=== PATIENT | female | born 1990 | race Caucasian/White ===

== ENCOUNTER 2023-10-14 20:36 | Inpatient (IN) | payer BC, SELFPAY ==
[2023-10-14] VITALS (9 sets, daily range): BP systolic 124–146; BP diastolic 71–94; PULSE 77–91; RESP 14; TEMP 36.7–37.2; O2SAT 81–99; BMI 31.8
[2023-10-14 21:08] LABS: Absolute Lymphocyte Count 1.98 X10^3/uL (0.83-4.51); Absolute Neutrophil Count 7.7 X10^3/uL (2.0-7.7); Basophil# 0.06 X10^3/uL; Basophil% 0.6 % (0-1); Eosinophils% 1.9 % (0-5); Hematocrit 34.5 % (37-47); Hemoglobin 11.3 g/dL (12.0-15.0); Lymphocyte # 1.98 X10^3/ul (0.83-4.51); Lymphocyte % 18.4 % (19-41); Mean Corp Hgb Conc 32.8 g/dL (32-36); Mean Corpuscular Hgb 28.8 pg (27.0-32.0); Mean Corpuscular Volume 87.8 fL (81-99); Mean Platelet Vol. 12.5 fl (6.2-12.0); Monocyte# 0.73 X10^3/uL; Monocyte% 6.8 % (0-10); NRBC Flagged by Analyzer 0 % (0-5); Neutrophil # 7.74 X10^3/uL (2.7-7.7); Neutrophil % 71.7 % (47-70); Platelet Count 268 K/mm3 (150-450); RBC Distribution Width CV 14.3 % (11.6-14.6); RBC Distribution Width SD 44.8 fl (35.1-43.9); Red Blood Count 3.93 M/mm3 (4.2-5.4); White Blood Count 10.8 K/mm3 (4.4-11.0)
[2023-10-14] MEDS: miSOPROStol 25 MCG TABLET PO (21:31)
[2023-10-14] MEDS: 0.9% Normal Saline Single 100 ML IV.SOLN. INTRA-UTER (21:31)
--- NOTE | 2023-10-14 21:33 | OB.TRI.NOTE ---
HPI - General General Date of Admission: 10/14/23 HPI Narrative PINA WEST, is a 33 F at 39.2 who presents for induction of labor for polyhydramnios and preeclampsia. She was scheduled for induction tomorrow night but most recent labs returned with an elevated P/C ratio and elevated blood pressures. Maternal Data Information LILLIAN Calculator Estimated Delivery Date Method Current WG Current Estimate 10/19/23 Manual 39w 2d Final LILLIAN: 10/19/23 PFSH PFSH Medical History (Updated 10/14/23 @ 21:44 by Saniya Dao CNM) Fibromyalgia Polyhydramnios Pre-eclampsia Seasonal allergies Home Medications diphenhydramine HCl 25 mg capsule (Benadryl) 25 mg PO Q8H PRN seasonal allergies 10/14/23 [History Last Taken Unknown] famotidine 20 mg tablet (Acid Bakery Technician (famotidine)) 20 mg PO DAILY PRN heartburn 10/14/23 [History Last Taken Unknown] loratadine 10 mg tablet (Claritin) 10 mg PO DAILY seasonal allergies 10/14/23 [History Last Taken Unknown] vit no.95-ferrous fumarate 28 mg-folic acid 800 mcg tablet () 1 tab PO DAILY 10/14/23 [History Last Taken Unknown] Allergy/AdvReac Type Severity Reaction Status Date / Time Sulfa (Sulfonamide AdvReac Mild Vomiting Verified 10/14/23 20:49 Antibiotics) Family History Mother COPD (chronic obstructive pulmonary disease) Father Hypertension Social History Smoking Status: Never smoker History Elective abortions Hx Para 0 Spontaneous abortions Hx # Term Pregnancies Ectopic pregnancies Hx # Pregnancies Multiple births # of living children ROS Eyes Eyes: Denies blurry vision, change in vision or spots in vision ENT HEENT: Denies dizziness or headache(s) Cardiovascular Cardiovascular: Denies abdominal pain, chest pain or dyspnea Respiratory/Chest Respiratory/Chest: Denies cough, dyspnea, shortness of breath at rest or shortness of breath with exertion Gastrointestinal Gastrointestinal: Denies abdominal pain, diarrhea or vomiting Genitourinary Genitourinary: Denies change in urinary stream, difficulty urinating or dysuria Musculoskeletal Musculoskeletal: Reports none Integumentary Integumentary: Denies rash Neurologic Neurologic: Denies dizziness, headache(s), memory loss or weakness Psychiatric Psychiatric: Reports none Physical Exam Const alert, oriented x3 and no apparent distress General Appearance: cooperative Orientation / Consciousness: awake Exam Limitations: no limitations HEENT normocephalic Head and Scalp: normal to inspection Eyes General Eye: normal appearance of both eyes Neck full ROM and no lymphadenopathy Lymph Lymphatic: no lymphadenopathy noted Chest inspection of chest normal Resp normal respiratory effort, normal air movement and clear to auscultation bilaterally Effort and Inspection: able to speak in complete sentences and symmetric chest movement Cardio regular rate and regular rhythm GI normal to inspection, nondistended, normoactive bowel sounds Manual OB Exam: presentation cephalic Back/Spine normal ROM Extremity full ROM and no calf tenderness General Extremity: edema bilateral (+2) lower extremity Skin no rashes or lesions noted General Skin Exam: no breakdown Neuro oriented x3 and CN's II-XII intact bilaterally Psych mental status grossly normal and thought process normal Assessment & Plan (1) 39 weeks gestation of : (2) Polyhydramnios affecting : (3) Encounter for induction of labor: (4) Pre-eclampsia: PLAN: Plan Admit to labor and delivery Activate hypertension protocol GBS negative CE 1.5/60/-2 Cortez bulb placed without difficulty and filled with 30 cc/ NS Cytotec 25 mcg PO every 4 hours x 6 doses total Pain medications as indicated Initial blood pressure 146/94 Patient denies current headache, dizziness, or RUQ pain Dr. Meade notified of admission and is collaborating physician
[2023-10-14 21:41] LABS: Syphilis Antibodies Non-reactive
--- NOTE | 2023-10-14 21:45 | HP.PCM.OB_ITS ---
HPI - General General Date of Admission: 10/14/23 HPI Narrative PINA WEST, is a 33 F at 39.2 weeks gestation who presents for induction of labor. Patient was scheduled for induction tomorrow for polyhydramnios (KIYA 30) but recent labs drawn in office resulted elevated P/C ratio. Maternal Data Information LILLIAN Calculator Estimated Delivery Date Method Current WG Current Estimate 10/19/23 Manual 39w 2d PFSH PFSH Medical History (Updated 10/14/23 @ 21:44 by Saniya Dao CNM) Fibromyalgia Polyhydramnios Pre-eclampsia Seasonal allergies Home Medications diphenhydramine HCl 25 mg capsule (Benadryl) 25 mg PO Q8H PRN seasonal allergies 10/14/23 [History Last Taken Unknown] famotidine 20 mg tablet (Acid Sales Associate Key Holder (famotidine)) 20 mg PO DAILY PRN heartburn 10/14/23 [History Last Taken Unknown] loratadine 10 mg tablet (Claritin) 10 mg PO DAILY seasonal allergies 10/14/23 [History Last Taken Unknown] vit no.95-ferrous fumarate 28 mg-folic acid 800 mcg tablet () 1 tab PO DAILY 10/14/23 [History Last Taken Unknown] Allergy/AdvReac Type Severity Reaction Status Date / Time Sulfa (Sulfonamide AdvReac Mild Vomiting Verified 10/14/23 20:49 Antibiotics) Family History Mother COPD (chronic obstructive pulmonary disease) Father Hypertension Social History Smoking Status: Never smoker History Elective abortions Hx Para 0 Spontaneous abortions Hx # Term Pregnancies Ectopic pregnancies Hx # Pregnancies Multiple births # of living children ROS Eyes Eyes: Denies blurry vision, change in vision or spots in vision ENT HEENT: Denies dizziness or headache(s) Cardiovascular Cardiovascular: Denies abdominal pain, chest pain or dyspnea Respiratory/Chest Respiratory/Chest: Denies cough, dyspnea, shortness of breath at rest or shortness of breath with exertion Gastrointestinal Gastrointestinal: Denies abdominal pain, diarrhea or vomiting Genitourinary Genitourinary: Denies change in urinary stream, difficulty urinating or dysuria Musculoskeletal Musculoskeletal: Reports none Integumentary Integumentary: Denies rash Neurologic Neurologic: Denies dizziness, headache(s), memory loss or weakness Psychiatric Psychiatric: Reports none Vital Signs Vital Signs Vital Signs: 10/14/23 20:56 10/14/23 20:56 10/14/23 20:57 Temperature Temperature Source Pulse Rate 83 91 Respiratory Rate Blood Pressure 146/94 H BP Systolic 146 BP Diastolic 94 Pulse Ox 10/14/23 20:57 10/14/23 20:58 10/14/23 20:58 Temperature Temperature Source Pulse Rate 84 Respiratory Rate Blood Pressure BP Systolic BP Diastolic Pulse Ox 99 81 10/14/23 20:59 10/14/23 20:59 10/14/23 20:59 Temperature Temperature Source Temporal Pulse Rate 91 Respiratory Rate 14 Blood Pressure BP Systolic BP Diastolic Pulse Ox 10/14/23 20:59 10/14/23 20:59 Temperature 98.9 F Temperature Source Pulse Rate Respiratory Rate Blood Pressure BP Systolic BP Diastolic Pulse Ox 99 Weight Weight: 174 lb 8 oz Body Mass Index (BMI) 31.8 Physical Exam Const alert, oriented x3 and no apparent distress General Appearance: cooperative Orientation / Consciousness: awake Exam Limitations: no limitations HEENT normocephalic Head and Scalp: normal to inspection Eyes General Eye: normal appearance of both eyes Neck full ROM and no lymphadenopathy Lymph Lymphatic: no lymphadenopathy noted Chest inspection of chest normal Resp normal respiratory effort, normal air movement and clear to auscultation bilaterally Effort and Inspection: able to speak in complete sentences and symmetric chest movement Cardio regular rate and regular rhythm GI normal to inspection, nondistended, normoactive bowel sounds Manual OB Exam: presentation cephalic Back/Spine normal ROM Extremity full ROM and no calf tenderness Skin no rashes or lesions noted General Skin Exam: no breakdown Neuro oriented x3 and CN's II-XII intact bilaterally Psych mental status grossly normal and thought process normal Labs Labs Labs: Blood Type Pending Antibody Screen Pending Hct 34.5 % (37-47) L Hgb 11.3 g/dL (12.0-15.0) L Syphilis Total Ab Non-reactive GBS negative Assessment & Plan (1) Pre-eclampsia: (2) Encounter for induction of labor: (3) Polyhydramnios affecting : (4) 39 weeks gestation of : PLAN: Plan Admit to labor and delivery GBS negative CE 1.5/60/-2 Cortez bulb placed without difficulty and filled with 30 cc N/S Cytotec 25 mcg. PO every 4 hours with a total of 6 doses Initial BP tonight 146/94 Activate hypertension protocol Pain medication if indicated Dr. Meaed notified of admission and is collaborating physician
[2023-10-14] MEDS: Acetaminophen 500 MG Tablet PO (23:45)
[2023-10-15] VITALS (81 sets, daily range): BP systolic 112–159; BP diastolic 58–91; PULSE 67–169; RESP 16–18; TEMP 36.1–37.8; O2SAT 91–100
[2023-10-15] MEDS: Lactated Ringers 1,000 ML 50 ML IV (01:44)
[2023-10-15] MEDS: Oxytocin 15 Units/NS 250ml 15 UNITS/250 ML IV.SOLN 2 UNITS IV (01:44)
[2023-10-15] MEDS: LACTATED RINGERS 500 ML 999 ML IV ×5 (04:40→17:27)
--- NOTE | 2023-10-15 06:44 | PN.OBGYN_ITS ---
Subjective Subjective Patient seen at bedside. Coping with contractions. Ambulating and changing positions without difficulty. Unsure if wants epidural for pain control. Objective Data Objective Data Vital Signs: Vital Signs Temp Pulse Resp BP Pulse Ox 98.0 F 72 16 139/86 H 99 10/15/23 06:03 10/15/23 06:04 10/15/23 06:03 10/15/23 06:04 10/15/23 06:03 Weight: 174 lb 8 oz Body Mass Index (BMI) 31.8 Intake & Output: Intake and Output for Last 24 Hours 10/13/23 10/14/23 10/15/23 23:59 23:59 23:59 Intake Total 653.40 / 653.40 Balance 653.40 / 653.40 Lab / Micro Data 10/14/23 20:45 Labs: Laboratory Results - last 24 hr 10/14/23 20:45: WBC 10.8, RBC 3.93 L, Hgb 11.3 L, Hct 34.5 L, MCV 87.8, MCH 28.8, MCHC 32.8, RDW Std Deviation 44.8 H, RDW Coeff of Chad 14.3, Plt Count 268, MPV 12.5 H, Immature Gran % (Auto) 0.600, Neut % (Auto) 71.7 H, Lymph % (Auto) 18.4 L, [place] % (Auto) 6.8, Eos % (Auto) 1.9, Baso % (Auto) 0.6, Absolute Neuts (auto) 7.7, Absolute Lymphs (auto) 1.98, Nucleated RBC % 0, Syphilis Total Ab Non-reactive, Blood Type A POSITIVE, Antibody Screen NEGATIVE Assessment & Plan (1) Pre-eclampsia: (2) Encounter for induction of labor: (3) Polyhydramnios affecting : (4) 39 weeks gestation of : PLAN: Plan Cat. 1 tracing Cortez bulb came out around 2330 No severe range blood pressures Denies headache, vision changes, or RUQ pain CE 4/70/-2 AROM for copious amount of clear fluid Continue Pitocin IV and increase per orders Epidural if indicated
[2023-10-15] MEDS: fentaNYL-bupivacaine (epidural) 100 ML BAG EPIDURAL ×3 (08:17→19:13)
[2023-10-15] MEDS: Lactated Ringers 1,000 ML 200 ML IV ×3 (10:04→20:53)
[2023-10-15] MEDS: Amnioinfusion- 0.9% NS 1,000 ML IV.SOLN. 200 ML INTRA-UTER (11:27)
--- NOTE | 2023-10-15 21:08 | PN.OBGYN_ITS ---
Subjective Subjective Resting on left side in bed. Feeling so pressure. Epidural for pain management. Objective Data Objective Data Vital Signs: Vital Signs Temp Pulse Resp BP Pulse Ox 99.5 F H 72 16 146/91 H 100 10/15/23 20:16 10/15/23 20:23 10/15/23 20:16 10/15/23 20:23 10/15/23 19:24 Weight: 174 lb 8 oz Body Mass Index (BMI) 31.8 Intake & Output: Intake and Output for Last 24 Hours 10/13/23 10/14/23 10/15/23 23:59 23:59 23:59 Intake Total 5016.95 / 5016.95 Output Total 1300 / 1300 Balance 3716.95 / 3716.95 Lab / Micro Data 10/14/23 20:45 Labs: Laboratory Results - last 24 hr 10/14/23 20:45: WBC 10.8, RBC 3.93 L, Hgb 11.3 L, Hct 34.5 L, MCV 87.8, MCH 28.8, MCHC 32.8, RDW Std Deviation 44.8 H, RDW Coeff of Chad 14.3, Plt Count 268, MPV 12.5 H, Immature Gran % (Auto) 0.600, Neut % (Auto) 71.7 H, Lymph % (Auto) 18.4 L, [place] % (Auto) 6.8, Eos % (Auto) 1.9, Baso % (Auto) 0.6, Absolute Neuts (auto) 7.7, Absolute Lymphs (auto) 1.98, Nucleated RBC % 0, Syphilis Total Ab Non-reactive, Blood Type A POSITIVE, Antibody Screen NEGATIVE Physical Exam Manual OB Exam: presentation cephalic, dilated 10cm, effaced 100% and station +1 NST FHR Rate Baby A Baseline: 140 Variability:: Moderate Accelerations:: 15 x 15 Decelerations:: Early and Variable FHR Category:: Category II Assessment & Plan (1) Pre-eclampsia: (2) Encounter for induction of labor: (3) Polyhydramnios affecting : (4) 39 weeks gestation of : PLAN: Plan 1) Complete dilation, start pushing efforts for second stage 2) Category 2 FHT 3) collaborative physician, notified of patient status and of above assessment and plan
[2023-10-15] MEDS: Ondansetron 4 MG/2 ML Vial IV (21:32)
[2023-10-16] VITALS (48 sets, daily range): BP systolic 117–142; BP diastolic 68–84; PULSE 74–104; RESP 16–20; TEMP 36.5–37.8; O2SAT 16–98
[2023-10-16] MEDS: Oxytocin 10 UNITS/ML Vial IM (00:42)
[2023-10-16] MEDS: Oxytocin 15 Units/NS 250ml 15 UNITS/250 ML IV.SOLN 83 UNITS IV (00:44)
--- NOTE | 2023-10-16 01:11 | OP.PCM_ITS ---
Assessment & Plan (1) Vaginal delivery: (2) First degree perineal laceration: (3) Lactating mother: Maternal Data Information LILLIAN Calculator Estimated Delivery Date Method Current WG Current Estimate 10/19/23 Manual 39w 4d Vaginal Delivery Maternal Presentation Maternal Presentation: Medically Indicated Induction Type of Induction: Pitocin, Cortez Bulb and Cytotec Medical Reason for Induction: Preeclampsia, eclampsia Operative Information Date of Procedure: 10/16/23 Pre-Operative Diagnosis: Medically Indicated Induction of Labor for preeclampsia Post-Operative Diagnosis: , first degree perineal laceration Surgery / Procedure Performed: Spontaneous Vaginal Delivery Type of Anesthesia: Epidural Estimated Blood Loss: 300 ml Time of Delivery: 00:37 Findings Description of Procedure: Progressed to complete with urge to push. Epidural for pain management, in effective at times. of viable male infant over 1st degree perineal laceration. APGARS 8,9. Infant head delivered with body immediately forthcoming. Placed on maternal abdomen, strong cry. Mouth and nares suctioned for secretions. Pitocin started for active 3rd stage management. Cord doubly clamped and cut by FOB after pulsations ceased, delayed cord clamping. Placenta delivered intact via peng, 3 vessel cord intact. Perineum inspected and revealed 1st degree perineal laceration. Repaired with 3.0 vicryl rapide and lidocaine. Fundus firm and hemostasis achieved. EBL 300ml. Mom and baby stable, planning to breastfeed. Family bonding well. notified of delivery. Presentation: Vertex and OMEGA Amniotic Membrane Rupture Type: Artificial Amniotic Fluid Description: Clear Placental Delivery Description: Spontaneous Placenta Disposition: [facility] Cord Vessel Description: 3 Vessels Cord Entanglement: None A Gender: Male (1 minute): 8 (5 minute): 9 Delayed Cord Clamping: Yes Post Vaginal Delivery Medications Given After Delivery: IV Pitocin and IM Pitocin Episiotomy Description: None Laceration: Perineal Extension/lac and 1st degree Complication Complications: None
[2023-10-16] MEDS: Ibuprofen 600 MG Tablet PO ×2 (02:01→15:38)
[2023-10-17] VITALS (8 sets, daily range): BP systolic 118–140; BP diastolic 74–87; PULSE 81–91; RESP 16; TEMP 36.3–36.6; O2SAT 96–100
[2023-10-17 04:34] LABS: Absolute Lymphocyte Count 2.68 X10^3/uL (0.83-4.51); Absolute Neutrophil Count 13.9 X10^3/uL (2.0-7.7); Basophil# 0.06 X10^3/uL; Basophil% 0.3 % (0-1); Eosinophil# 0.41 X10^3/uL; Eosinophils% 2.3 % (0-5); Hematocrit 26.3 % (37-47); Hemoglobin 8.6 g/dL (12.0-15.0); Lymphocyte # 2.68 X10^3/ul (0.83-4.51); Lymphocyte % 14.7 % (19-41); Mean Corp Hgb Conc 32.7 g/dL (32-36); Mean Corpuscular Hgb 29.2 pg (27.0-32.0); Mean Corpuscular Volume 89.2 fL (81-99); Mean Platelet Vol. 11.9 fl (6.2-12.0); Monocyte# 0.97 X10^3/uL; Monocyte% 5.3 % (0-10); NRBC Flagged by Analyzer 0 % (0-5); Neutrophil # 13.91 X10^3/uL (2.7-7.7); Neutrophil % 76.6 % (47-70); Platelet Count 221 K/mm3 (150-450); RBC Distribution Width CV 14.8 % (11.6-14.6); RBC Distribution Width SD 46.7 fl (35.1-43.9); Red Blood Count 2.95 M/mm3 (4.2-5.4); White Blood Count 18.2 K/mm3 (4.4-11.0)
[2023-10-17] MEDS: Ibuprofen 600 MG Tablet PO (09:01)
--- NOTE | 2023-10-17 10:26 | PCM.PN.OB ---
Subjective Subjective pain well controlled, average lochia Objective Data Objective Data Vital Signs: Vital Signs Temp Pulse Resp BP Pulse Ox O2 Del Method 97.7 F L 89 16 140/80 H 100 Room Air 10/17/23 08:49 10/17/23 08:49 10/17/23 08:49 10/17/23 08:49 10/17/23 08:49 10/17/23 08:49 Oxygen Delivery Method Room Air Weight: 79.152 kg Body Mass Index (BMI) 31.8 Intake & Output: Intake and Output for Last 24 Hours 10/15/23 10/16/23 10/17/23 23:59 23:59 23:59 Intake Total 5016.95 / 5016.95 1114.73 / 1114.73 Output Total 1400 / 1400 1100 / 1100 300 / 300 Balance 3616.95 / 3616.95 14.73 / 14.73 -300 / -300 Lab / Micro Data 10/17/23 04:13 Labs: Laboratory Results - last 24 hr 10/17/23 04:13: WBC 18.2 H, RBC 2.95 L, Hgb 8.6 L, Hct 26.3 L, MCV 89.2, MCH 29.2, MCHC 32.7, RDW Std Deviation 46.7 H, RDW Coeff of Chad 14.8 H, Plt Count 221, MPV 11.9, Immature Gran % (Auto) 0.800, Neut % (Auto) 76.6 H, Lymph % (Auto) 14.7 L, [place] % (Auto) 5.3, Eos % (Auto) 2.3, Baso % (Auto) 0.3, Absolute Neuts (auto) 13.9 H, Absolute Lymphs (auto) 2.68, Nucleated RBC % 0 Physical Exam Const alert and no apparent distress Narrative: Fundus firm, below umbilicus. Assessment & Plan (1) (spontaneous vaginal delivery): PLAN: PPD#1 s/p doing well routine care and doing well
[2023-10-18 02:34] VITALS: BP 131/66; PULSE 71
[2023-10-18 02:42] VITALS: BP 131/66; PULSE 72; RESP 16; TEMP 36.6; O2SAT 98
[2023-10-18] MEDS: Ibuprofen 600 MG Tablet PO (05:14)
[2023-10-18 05:44] LABS: Hematocrit 29.4 % (37-47); Hemoglobin 9.4 g/dL (12.0-15.0); Mean Corpuscular Hgb 28.3 pg (27.0-32.0); Mean Corpuscular Volume 88.6 fL (81-99); Mean Platelet Vol. 12.1 fl (6.2-12.0); Platelet Count 256 K/mm3 (150-450); RBC Distribution Width CV 14.8 % (11.6-14.6); Red Blood Count 3.32 M/mm3 (4.2-5.4); White Blood Count 14.2 K/mm3 (4.4-11.0)
[2023-10-18 08:18] VITALS: BP 127/86; PULSE 88
--- NOTE | 2023-10-18 08:35 | PCM.PN.OB ---
Subjective Subjective Patient is doing well this morning. She denies headache, vision changes, upper abdominal pain, nausea, vomiting, chest pain, shortness of breath. She is ambulating and voiding without difficulty. She has no pain. Lochia is normal. She has noticed lower extremity swelling. She feels ready go home today. Objective Data Objective Data Vital Signs: Vital Signs Temp Pulse Resp BP Pulse Ox O2 Del Method 97.8 F 88 16 127/86 H 98 Room Air 10/18/23 02:42 10/18/23 08:18 10/18/23 02:42 10/18/23 08:18 10/18/23 02:42 10/18/23 02:42 Oxygen Delivery Method Room Air Weight: 174 lb 8 oz Body Mass Index (BMI) 31.8 Intake & Output: Intake and Output for Last 24 Hours 10/16/23 10/17/23 10/18/23 23:59 23:59 23:59 Intake Total 1114.73 / 1114.73 Output Total 1100 / 1100 2500 / 2500 1000 / 1000 Balance 14.73 / 14.73 -2500 / -2500 -1000 / -1000 Lab / Micro Data 10/18/23 05:10 Labs: Laboratory Results - last 24 hr 10/18/23 05:10: WBC 14.2 H, RBC 3.32 L, Hgb 9.4 L, Hct 29.4 L, MCV 88.6, MCH 28.3, MCHC 32.0, RDW Std Deviation 47.0 H, RDW Coeff of Chad 14.8 H, Plt Count 256, MPV 12.1 H Physical Exam Const alert and no apparent distress General Appearance: comfortable Resp normal respiratory effort GI soft to palpation, non-tender and non-distended GI Narrative: FF@U-1 Extremity no calf tenderness Extremity Narrative: 1+ pitting edema bilateral LE, patellar reflexes 2+ Assessment & Plan (1) (spontaneous vaginal delivery): PLAN: Patient is day 2 from a spontaneous vaginal delivery. She is meeting milestones for discharge. She desires to go home today. Discharge instructions reviewed. To follow-up in the office for blood pressure check. (2) First degree perineal laceration: (3) Lactating mother: (4) Pre-eclampsia: PLAN: Blood pressures are normal and she has no symptoms of preeclampsia. Discussed checking blood pressure at home and calling the office for blood pressure check. Reviewed reasons to call.
[2023-10-18 08:36] VITALS: BP 127/86; PULSE 88; RESP 16; TEMP 37.1
--- NOTE | 2023-10-18 08:39 | PCM.DC ---
Discharge Instructions Diet Discharge Diet: No restrictions Activity Discharge Activity: May Drive and May Shower May resume sexual activity in: 6 weeks Ice area for (Minutes): 15 Weight Bearing Status: Weight bearing as tolerated Lifting Restrictions: nothing heavier than baby Dressing / Incision Call your doctor if you observe: Fever of 101 or Higher, Coldness, Increased Pain, Numbness or Tingling, Change in Color, Inability to urinate, Inability to have a bowel movement, Using more than 1 pad per hour, Shortness of breath, Dizziness, Fainting spells, Swelling in the ankles, Chest pain, Prolonged hiccupping, Increased palpitations (irregular heartbeat), Calf discomfort, Uncontrolled pain and - (headache that does not improve with pain medication, vision changes, upper abdominal pain that is persistent, nausea and vomiting) Cleanse incision/area with: Soap & Water Follow Up Care Please Follow Up With: Sharee Dao DO When: 1 week for blood pressure check 6 weeks for exam Test Results: Test results from this visit will be discussed in further detail at your follow-up appointment, if applicable. Discharge Plan Admission Admit Date/Time: 10/14/23 20:36 Primary Reason for Your Visit: delivery Attending Provider: Maryann Doty Primary Care Provider: Lorne Dixon Instructions Patient Instructions: After a Vaginal , Understanding Preeclampsia Discharge Orders/Prescriptions Prescriptions: New (DME) Blood Pressure Cuff Misc See Rx Instructions .Route Qty: 1 0RF Rx Instructions: As directed Continued PNV cmb#95-ferrous fumarate-FA [] 28 mg iron- 800 mcg tablet 1 tab PO DAILY loratadine [Claritin] 10 mg tablet 10 mg PO DAILY Discontinued famotidine [Acid Production Weigher (famotidine)] 20 mg tablet 20 mg PO DAILY PRN (Reason: heartburn) diphenhydramine HCl [Benadryl] 25 mg capsule 25 mg PO Q8H PRN (Reason: seasonal allergies) Referrals / Follow Up: Lorne Dixon, [facility] [Primary Care Provider] - Disposition Disposition (needs filled in before D/C Order can be placed): Home, Self Care
[2023-10-18 13:50] VITALS: BP 132/87; PULSE 80
[2023-10-18 14:00] VITALS: BP 132/87; PULSE 80; RESP 18; TEMP 37.2
== END 2023-10-18 14:30 | disposition home or self-care (01) | DRG 807 ==
PROVIDERS: Advanced Practice Midwife; Obstetrics & Gynecology; Admitting Provider Advanced Practice Midwife; PCP Nurse Practitioner Family; Visit Provider Advanced Practice Midwife
DX: O40.3XX0 Polyhydramnios, third trimester, not applicable or unspecified (principal); Z37.0 Single live birth; O14.94 Unspecified pre-eclampsia, complicating childbirth; O70.0 First degree perineal laceration during delivery; Z3A.39 39 weeks gestation of pregnancy
CPT/HCPCS: 59025; 59050; 85025; 85027; 86780; 86850; 86900; 86901; 99221; J7030; J7120; G0378; J2405

== ENCOUNTER → 2024-03-27 | Outpatient (CLI) | payer BC, SELFPAY ==
[2024-03-27 12:59] LABS: Erythrocyte Sedimentation Rate 28 mm/hr (0-30)
[2024-03-27 13:01] LABS: Absolute Lymphocyte Count 1.04 X10^3/uL (0.83-4.51); Absolute Neutrophil Count 3.5 X10^3/uL (2.0-7.7); Basophil# 0.07 X10^3/uL; Basophil% 1.2 % (0-1); Eosinophil# 0.59 X10^3/uL; Eosinophils% 10.4 % (0-5); Hematocrit 44.9 % (37-47); Hemoglobin 14.6 g/dL (12.0-15.0); Lymphocyte # 1.04 X10^3/ul (0.83-4.51); Lymphocyte % 18.3 % (19-41); Mean Corp Hgb Conc 32.5 g/dL (32-36); Mean Corpuscular Hgb 29.1 pg (27.0-32.0); Mean Corpuscular Volume 89.4 fL (81-99); Mean Platelet Vol. 10.4 fl (6.2-12.0); Monocyte# 0.52 X10^3/uL; Monocyte% 9.2 % (0-10); NRBC Flagged by Analyzer 0 % (0-5); Neutrophil # 3.46 X10^3/uL (2.7-7.7); Neutrophil % 60.9 % (47-70); Platelet Count 366 K/mm3 (150-450); RBC Distribution Width CV 13.7 % (11.6-14.6); RBC Distribution Width SD 45.2 fl (35.1-43.9); Red Blood Count 5.02 M/mm3 (4.2-5.4); White Blood Count 5.7 K/mm3 (4.4-11.0)
[2024-03-27 13:26] LABS: ALB/GLOB Ratio 0.9 RATIO (0.9-2.4); AST(SGOT) 15 U/L (15-37); Alanine Aminotransfer ALT/SGPT 21 U/L (13-56); Alkaline Phosphatase 100 U/L (45-117); Anion Gap 6 (5-15); BUN 17 mg/dL (7-18); BUN/Creat Ratio 22.3 RATIO (10-20); CRP 4.47 mg/L (0.0-3.0); Calcium,Total 9.9 mg/dL (8.5-10.1); Chloride 110 mmol/L (98-107); Cholesterol 200 mg/dL (200); Creatinine, Serum 0.76 mg/dL (0.55-1.02); EST Glomerular Filtration Rate 94 mL/min (>60); Est Glom Filt Rate - Afr Amer 113 mL/min (>60); Globulin 4.3 g/dL (2.2-4.2); Glucose 91 mg/dL (74-106); High Density Lipoprotein 61 mg/dL; Potassium 4.2 mmol/L (3.5-5.1); Protein, Total 8.3 g/dL (6.4-8.2); Rheumatoid Factor < 10.0 IU/mL (<15); Sodium Level 140 mmol/L (136-145); Triglycerides 45 mg/dL; Very Low Density Lipoprotein 9 mg/dL (5-40)
[2024-03-27 13:28] LABS: Hemoglobin A1c 5.6 % (3.8-5.6)
[2024-03-28 11:49] LABS: Vitamin B12 958 pg/mL (211-911); Vitamin D,25 Hydroxy 27.9 ng/mL
[2024-04-02 11:09] LABS: ANTINUCLEAR ANTIBODIES DIRECT Negative (Negative)
== END | disposition home or self-care (01) ==
LOC: VSLAB 09:41
PROVIDERS: PCP Nurse Practitioner Family; Visit Provider Nurse Practitioner Family
DX: Z00.00 Encounter for general adult medical examination without abnormal findings (principal); M25.50 Pain in unspecified joint; E56.9 Vitamin deficiency, unspecified
CPT/HCPCS: 36415; 80053; 80061; 82306; 82607; 83036; 84443; 85025; 85652; 86038; 86140; 86200; 86225; 86235; 86431